=== PATIENT | female | born 1980 | race Caucasian/White ===

== ENCOUNTER → 2016-11-01 | Outpatient (CLI) | payer OTHER ==
--- NOTE | 2016-11-01 13:52 | XR ---
EXAMINATION TYPE: XR Hip Bilateral Complete DATE OF EXAM: 11/01/2016 1:47 PM CLINICAL HISTORY: Bilateral hip pain after popping injury TECHNIQUE: AP and frogleg views of the bilateral hips are obtained. COMPARISON: None. FINDINGS: There is no acute fracture/dislocation evident in either hip. There is mild to moderate ax ial joint space loss in both hips present. No significant spurring is seen bilaterally. The overlying soft tissue appears unremarkable bilaterally. IMPRESSION: There is no acute fracture or dislocation in either hip.
== END | disposition home or self-care (01) ==
LOC: RADXRMAIN 13:30
PROVIDERS: ATTEND Physician Assistant
DX: M24.852 Other specific joint derangements of left hip, not elsewhere classified (principal); M24.851 Other specific joint derangements of right hip, not elsewhere classified; M25.552 Pain in left hip; M25.551 Pain in right hip
CPT/HCPCS: 73521

== ENCOUNTER → 2016-11-24 | Outpatient (CLI) | payer OTHER ==
--- NOTE | 2016-11-24 22:12 | MR ---
EXAMINATION TYPE: MR lumbar spine wo con DATE OF EXAM: 11/24/2016 6:24 PM COMPARISON: NONE HISTORY: Back pain TECHNIQUE: T1 and T2 axial and sagittal images of the lumbar spine are submitted. FINDINGS: There is no abnormal signal seen within the visualized spinal cord or paraspinal soft tissu es. At L1-2 there is no disc herniation or canal stenosis. No foraminal encroachment. At L2-3 there is no disc herniation, canal stenosis, or foraminal encroachment. There is no evidence of degenerative disc disease. Mild circumferential disc bulging. Mild hypertrophic change of the face ts. At L3-4 there is disc desiccation mild loss of disc space. There is an annular tear and broad-based c entral disc bulging with mild effacement of thecal sac. Borderline canal stenosis. Neural foramina pa tent bilaterally. Mild hypertrophic change of the facets. At L4-5 there is disc desiccation and annular tear with central disc broad-based protrusion and mild effacement of thecal sac. Neural foramina patent. At L5-S1 there is no disc herniation, canal stenosis, or foraminal encroachment. There is no evidence of degenerative disc disease. IMPRESSION: 1. Degenerative disc disease and annular tear L3-L4 and L4-L5 with central disc bulging or protrusion and mild effacement of thecal sac but no canal stenosis or foraminal encroachment.
== END | disposition home or self-care (01) ==
LOC: RADMRIMAIN 17:48
PROVIDERS: ATTEND Psychiatry & Neurology Neurology
DX: M51.26 Other intervertebral disc displacement, lumbar region (principal); M51.36 Other intervertebral disc degeneration, lumbar region
CPT/HCPCS: 72148

== ENCOUNTER → 2016-12-12 | Outpatient (CLI) | payer OTHER ==
[2016-12-12 11:33] LABS: Hepatitis B Surface Ag Index 0.07
[2016-12-12 15:37] LABS: Treponemal Ab Non-Reactive (Non-Reactive)
[2016-12-12 17:00] LABS: HSV I IgG Interp POSITIVE (NEGATIVE); HSV II IgG Interp NEGATIVE (NEGATIVE)
[2016-12-13 07:53] LABS: HIV-1/HIV-2 Ab Screen NONREAC (NON REAC)
== END ==
LOC: LABWHC1 10:06
PROVIDERS: ATTEND Obstetrics & Gynecology
DX: Z11.3 Encounter for screening for infections with a predominantly sexual mode of transmission (principal)
CPT/HCPCS: 36415; 86695; 86696; 86780; 87340; 87389

== ENCOUNTER 2018-01-07 10:59 | Day surgery (SDC) | payer BC, OTHER ==
[2018-01-03 10:32] VITALS: BMI 44.4
[~2018-01-07 10:59] MED LIST: DEXAMETHASONE SOD PHOSPHATE 10 MG/ML 1 ML VIAL IV ONE; LACTATED RINGERS 1,000 ML IV SCH; ONDANSETRON 4 MG/2 ML VIAL IVP ONE
[2018-01-07] MEDS ORDERED: LIDOCAINE 1% 20 ML VIAL (10MG/ML) FOR IV START INTRADERMA ONE (11:52)
[2018-01-07 11:53] VITALS: TEMP 97.5
[2018-01-07] MEDS ORDERED: PROPOFOL 10 MG/ML 20 ML VIAL IV ONE (12:34)
[2018-01-07 13:05] VITALS: RESP 18
--- NOTE | 2018-01-07 13:08 | P.PCN ---
Date of Procedure: 01/07/18 Procedure(s) Performed: Procedure: Colonoscopy and biopsy. Preoperative diagnosis: Intermittent rectal bleeding and change in bowel habits. Postoperative diagnosis: 1. Low-grade internal hemorrhoids not bleeding at the time of the exam, otherwise, exam to the terminal ileum within normal limits. 2. Biopsies obtained from the terminal ileum and right colon. Preparation: HalfLytely prep. Sedation: Was provided by anesthesia. Brief clinical history: The patient is a 37-year-old female who was evaluated in the office and scheduled for this evaluation because of intermittent rectal bleeding for the last 6 months. In addition, she reported looser more frequent stools. The patient has been told she had irritable bowel syndrome over the years and her last colonoscopy was 5 or 6 years ago. Procedure: With the patient on her left lateral decubitus position and after informed consent and adequate sedation, the perianal area was inspected and it did not show any fissures or fistulas. The were no masses felt on digital rectal examination. The Olympus CFQ 160L video colonoscope was then inserted in the rectum in the usual fashion and advanced to the cecum. I intubated the ileocecal valve and examined the terminal ileum. Terminal ileum and colon appeared healthy with no edema, erythema, friability, ulceration, exudation or spontaneous bleeding. No polyps or tumors were seen or any obvious diverticular disease. I obtained biopsies from the terminal ileum and right colon then I retroflexed the endoscope in the rectum before the endoscope was withdrawn. Low-grade internal hemorrhoids were noted but there was no bleeding. The patient tolerated the procedure well. Plan: The patient was reassured. She will follow-up with you as planned. Discussed dietary measures and local care for hemorrhoids. We would keep you updated on her progress.
[2018-01-07 13:19] VITALS: BP 118/77; PULSE 66
== END 2018-01-07 14:00 | disposition home or self-care (01) ==
LOC: ORWHC2ENDO 10:59
DX: K64.8 Other hemorrhoids (principal); K58.9 Irritable bowel syndrome, unspecified; M54.9 Dorsalgia, unspecified; Z88.1 Allergy status to other antibiotic agents; Z88.2 Allergy status to sulfonamides; F17.200 Nicotine dependence, unspecified, uncomplicated; Z79.1 Long term (current) use of non-steroidal anti-inflammatories (NSAID); Z79.899 Other long term (current) drug therapy
CPT/HCPCS: 88305; 45380; J1100; J2405; J2704

== ENCOUNTER → 2018-02-15 | Outpatient (CLI) | payer BC, OTHER ==
[2018-02-15 08:55] LABS: Basophils # (A) 0.1 k/uL (0-0.2); Basophils % (A) 1 %; Eosinophils # (A) 0.2 k/uL (0-0.7); Eosinophils % (A) 2 %; HCT 44.4 % (34.0-46.0); HGB 15.2 gm/dL (11.4-16.0); Lymphocytes # (A) 2.5 k/uL (1.0-4.8); Lymphocytes % (A) 29 %; MCHC 34.4 g/dL (31.0-37.0); MCV 87.4 fL (80.0-100.0); Mean Platelet Volume 7.2; Monocytes # (A) 0.5 k/uL (0-1.0); Monocytes % (A) 6 %; Neutrophils # (A) 5.4 k/uL (1.3-7.7); Neutrophils % (A) 61 %; Platelet Count 330 k/uL (150-450); RBC 5.08 m/uL (3.80-5.40); RDW 12.5 % (11.5-15.5); WBC 8.9 k/uL (3.8-10.6)
== END | disposition home or self-care (01) ==
LOC: LABPAT 08:30
PROVIDERS: ATTEND Obstetrics & Gynecology
DX: Z01.812 Encounter for preprocedural laboratory examination (principal)
CPT/HCPCS: 36415; 85025

== ENCOUNTER → 2018-02-19 | Day surgery (SDC) | payer BC, OTHER ==
[2018-02-14 14:54] VITALS: BMI 42.6
[~2018-02-19] MED LIST changes: +ACETIC ACID 15 DROPS/ML DROPS MISCELLANE ONE; +HYDROcodone/APAP 7.5-325MG 1 EACH TAB PO ONE; +KETOROLAC 30 MG/ML 1 ML VIAL ONE; +LACTATED RINGERS 1,000 ML IV ONE; +LIDOCAINE 1% 20 ML VIAL (10MG/ML) FOR IV START INTRADERMA ONE; +LIDOCAINE 1% INJ 10MG/ML (20 ML MDV) ONE; +MEPERIDINE 50 MG/ML SYRINGE IVP ONE; +MIDAZOLAM 2 MG/2 ML VIAL IV PRN; +MIDAZOLAM 2 MG/2 ML VIAL ONE; +ONDANSETRON ODT 4 MG TAB PO ONE; +PROPOFOL 10 MG/ML 20 ML VIAL IV ONE; +Pre Op ABX Message 1 EACH MISC MISCELLANE ONE; +SCOPOLAMINE 1.5MG/72HR PATCH TRANSDERM ONE; +SILVER sulfADIAZINE Cream 400 GM 1 APPLIC APPLIC TOPICAL ONE; +fentaNYL (PF) 50 MCG/ML 2 ML AMP IV PRN; +fentaNYL (PF) 50 MCG/ML 2 ML AMP ONE
[2018-02-19 08:05] VITALS: TEMP 97.5
--- NOTE | 2018-02-19 08:05 | P.HPOB ---
History of Present Illness H&P Date: 02/19/18 Chief Complaint: vulvar condyloma 37 year old presents for laser vaporization of vulvar condyloma. Review of Systems All systems: negative Constitutional: Denies chills, Denies fever Eyes: denies blurred vision, denies pain Ears, nose, mouth and throat: Denies headache, Denies sore throat Cardiovascular: Denies chest pain, Denies shortness of breath Respiratory: Denies cough Gastrointestinal: Denies abdominal pain, Denies diarrhea, Denies nausea, Denies vomiting Genitourinary: Denies dysuria, Denies hematuria Musculoskeletal: Denies myalgias Integumentary: Denies pruritus, Denies rash Neurological: Denies numbness, Denies weakness Psychiatric: Denies anxiety, Denies depression Endocrine: Denies fatigue, Denies weight change Past Medical History Past Medical History: Fibromyalgia, Hearing Disorder / Deafness, Osteoarthritis (OA) Additional Past Medical History / Comment(s): Chronic back pain. Issues with recent rectal bleeding and loose stools but getting better, IBS, chronic ear infections. "Poor hearing, eustachian tubes never formed." History of Any Multi-Drug Resistant Organisms: MRSA Date of last positivie culture/infection: 12/02/15 MDRO Source:: Groin Past Surgical History: Cholecystectomy, Tubal Ligation, Uterine Ablation Additional Past Surgical History / Comment(s): Several myringotomies & tubes, mastoid surgery right ear, laser vaporization of condyloma Past Anesthesia/Blood Transfusion Reactions: Postoperative Nausea & Vomiting ( PONV) Additional Past Anesthesia/Blood Transfusion Reaction / Comment(s): Severe PONV. Past Psychological History: Anxiety, Depression Smoking Status: Current every day smoker Past Alcohol Use History: Rare Additional Past Alcohol Use History / Comment(s): Has been smoking 1PPD for 15 yrs. Past Drug Use History: None Reported - Past Family History Mother Family Medical History: Cancer Medications and Allergies Home Medications Medication Instructions Recorded Confirmed Type Naproxen [Naprosyn] 500 mg PO Q12HR PRN 01/03/18 02/19/18 History HYDROcodone/APAP 7.5-325MG [[place] 1 tab PO TID 02/14/18 02/19/18 History 7.5-325] Allergies Allergy/AdvReac Type Severity Reaction Status Date / Time sulfamethoxazole Allergy Rash/Hives Verified 02/19/18 07:58 [From Bactrim] trimethoprim [From Bactrim] Allergy Rash/Hives Verified 02/19/18 07:58 Exam Osteopathic Statement: *. No significant issues noted on an osteopathic structural exam other than those noted in the History and Physical/Consult. Heart: Regular rate and rhythm Lungs: Clear to auscultation bilaterally Abdomen: Soft, nontender Extremities: Negative Homans sign Assessment and Plan (1) Condyloma acuminata Current Visit: No Status: Acute Code(s): A63.0 - ANOGENITAL (VENEREAL) WARTS SNOMED Code(s): 903420016 Plan: 1. laser vaporization of condyloma
--- NOTE | 2018-02-19 09:38 | P.OP ---
Date of Procedure: 02/19/18 Preoperative Diagnosis: 1. vulvar condyloma Postoperative Diagnosis: 1. vulvar condyloma Procedure(s) Performed: laser vaporization of condyloma Anesthesia: MAC Surgeon: Devora Portillo Estimated Blood Loss (ml): 1 IV fluids (ml): 600 Urine output (ml): 5 Pathology: none sent Condition: stable Disposition: PACU Description of Procedure: Patient is taken the operating room where general anesthesia was obtained without difficulty. She is prepped and draped in normal sterile fashion dorsal lithotomy position, legs placed in candycane stirrups. The CO2 laser was placed on a power of 4 with a 10 second pulse. Several vulvar and perianal condyloma were vaporized. Silvadene was placed over the entire area when we were finished. Patient tolerated procedure well. Sponge and instrument counts are correct 2. She was taken to recovery room in stable condition.
[2018-02-19 10:18] VITALS: RESP 16
[2018-02-19 11:04] VITALS: BP 133/82; PULSE 55
== END | disposition home or self-care (01) ==
LOC: OR 07:30
PROVIDERS: ATTEND Obstetrics & Gynecology
DX: A63.0 Anogenital (venereal) warts (principal); M79.7 Fibromyalgia; H91.90 Unspecified hearing loss, unspecified ear; M19.90 Unspecified osteoarthritis, unspecified site; M54.9 Dorsalgia, unspecified; M54.2 Cervicalgia; G89.29 Other chronic pain; K58.9 Irritable bowel syndrome, unspecified; H66.90 Otitis media, unspecified, unspecified ear; F41.9 Anxiety disorder, unspecified; F32.9 Major depressive disorder, single episode, unspecified; F17.200 Nicotine dependence, unspecified, uncomplicated; Z79.891 Long term (current) use of opiate analgesic; Z88.1 Allergy status to other antibiotic agents; Z88.2 Allergy status to sulfonamides; Z87.19 Personal history of other diseases of the digestive system; Z86.14 Personal history of Methicillin resistant Staphylococcus aureus infection; Z98.51 Tubal ligation status
CPT/HCPCS: 81025; 56501; 46917; J2250; J1100; J2175; J2405; J2001; J3010; J1885; J2704

== ENCOUNTER → 2018-07-23 | Outpatient (CLI) | payer BC, OTHER ==
[2018-07-23 12:48] LABS: Basophils # (A) 0.1 k/uL (0-0.2); Basophils % (A) 1 %; Eosinophils # (A) 0.2 k/uL (0-0.7); Eosinophils % (A) 3 %; HGB 14.1 gm/dL (11.4-16.0); Lymphocytes # (A) 2.1 k/uL (1.0-4.8); Lymphocytes % (A) 30 %; MCH 30.4 pg (25.0-35.0); MCHC 33.5 g/dL (31.0-37.0); MCV 90.5 fL (80.0-100.0); Mean Platelet Volume 6.9; Monocytes # (A) 0.4 k/uL (0-1.0); Monocytes % (A) 5 %; Neutrophils # (A) 4.3 k/uL (1.3-7.7); Neutrophils % (A) 60 %; Platelet Count 299 k/uL (150-450); RBC 4.64 m/uL (3.80-5.40); RDW 12.8 % (11.5-15.5); WBC 7.1 k/uL (3.8-10.6)
--- NOTE | 2018-07-23 13:03 | XR ---
EXAMINATION TYPE: XR chest 2V DATE OF EXAM: 07/23/2018 COMPARISON: Chest x-ray March 31, 2013. HISTORY: Nasal congestion and cough. TECHNIQUE: Frontal and lateral views of the chest are obtained. FINDINGS: There is no focal air space opacity, pleural effusion, or pneumothorax seen. The cardiac silhouette size is within normal limits. The osseous structures are intact. IMPRESSION: No acute cardiopulmonary process. No significant change from prior.
--- NOTE | 2018-07-23 13:04 | XR ---
EXAMINATION TYPE: XR sinus DATE OF EXAM: 07/23/2018 CLINICAL HISTORY: Nasal congestion and cough. TECHNIQUE: Landry, Dupont, bucket-handle, and lateral image of the skull are obtained. COMPARISON: CT brain September 17, 2015. FINDINGS: The paranasal sinuses including the frontal and maxillary sinuses appear well aerated witho ut distinct abnormal opacification or suspicious air-fluid levels. Orbital floors and hampton are inta ct. Facial bones appear intact. Nasal septum remains slightly deviated to left of midline. There is chronic sclerosis of mastoid air cells redemonstrated. IMPRESSION: No convincing radiographic evidence for acute sinusitis.
[2018-07-23 13:29] LABS: Potassium 4.2 mmol/L (3.5-5.1); T4, Free (Free Thyroxine) 1.23 ng/dL (0.78-2.19)
[2018-07-23 13:31] LABS: ALT 39 U/L (9-52); AST 19 U/L (14-36); Albumin 3.9 g/dL (3.5-5.0); Alkaline Phosphatase 60 U/L (38-126); Anion Gap 9 mmol/L; Blood Urea Nitrogen 12 mg/dL (7-17); Calcium 9.4 mg/dL (8.4-10.2); Carbon Dioxide 25 mmol/L (22-30); Chloride 106 mmol/L (98-107); Cholesterol 131 mg/dL (<200); Glucose 84 mg/dL (74-99); HDL Cholesterol 42 mg/dL (40-60); LDL Cholesterol,Calculated 79 mg/dL (0-99); Sodium 140 mmol/L (137-145); Total Bilirubin 0.4 mg/dL (0.2-1.3); Total Protein 7.1 g/dL (6.3-8.2); Triglycerides 48 mg/dL (<150)
[2018-07-23 20:01] LABS: DHEA Sulfate 134.3 ug/dL (26.0-430.0)
[2018-07-23 20:03] LABS: Vitamin D 25 Hydroxy 20.7 ng/mL (30.0-100.0)
== END ==
LOC: LABWHC1 10:52
PROVIDERS: ATTEND Internal Medicine
DX: R05 Cough (principal); R09.81 Nasal congestion; N64.3 Galactorrhea not associated with childbirth; Z13.0 Encounter for screening for diseases of the blood and blood-forming organs and certain disorders involving the immune mechanism; Z13.228 Encounter for screening for other metabolic disorders; Z13.220 Encounter for screening for lipoid disorders
CPT/HCPCS: 36415; 70220; 71046; 80053; 80061; 82306; 82627; 84146; 84439; 84443; 85025

== ENCOUNTER → 2020-10-22 | Outpatient (CLI) | payer BC, OTHER ==
[2020-10-22 08:42] LABS: Basophils # (A) 0.1 k/uL (0-0.2); Basophils % (A) 1 %; Eosinophils # (A) 0.3 k/uL (0-0.7); Eosinophils % (A) 3 %; HCT 47.6 % (34.0-46.0); HGB 15.4 gm/dL (11.4-16.0); Lymphocytes # (A) 2.3 k/uL (1.0-4.8); Lymphocytes % (A) 24 %; MCH 29.4 pg (25.0-35.0); MCHC 32.3 g/dL (31.0-37.0); MCV 91.2 fL (80.0-100.0); Monocytes # (A) 0.5 k/uL (0-1.0); Monocytes % (A) 5 %; Neutrophils # (A) 6.1 k/uL (1.3-7.7); Neutrophils % (A) 65 %; Platelet Count 316 k/uL (150-450); RBC 5.22 m/uL (3.80-5.40); RDW 13.3 % (11.5-15.5); WBC 9.4 k/uL (3.8-10.6)
[2020-10-22 17:03] LABS: African American GFR (CKD) 125.6 (60.0-200.0); Albumin 4.2 g/dL (3.80-4.90); Albumin/Globulin Ratio 1.56 (1.60-3.17); BUN/Creat Ratio 15.71 Ratio (12.00-20.00); Calcium 9.2 mg/dL (8.7-10.3); Globulin 2.7 g/dL (1.6-3.3); Non-African American GFR(CKD) 108.4 (60.0-200.0); Potassium 4.4 mmol/L (3.5-5.5); Total Bilirubin 0.6 mg/dL (0.3-1.2); Total Protein 6.9 g/dL (6.2-8.2)
== END | disposition home or self-care (01) ==
LOC: LABWHC1 07:38
PROVIDERS: ATTEND Nurse Practitioner Family
DX: L02.828 Furuncle of other sites (principal)
CPT/HCPCS: 36415; 80053; 83036; 84134; 85025

== ENCOUNTER → 2022-09-01 | Outpatient (CLI) | payer BC, OTHER ==
[2022-09-01 14:43] LABS: Basophils # (A) 0.04 X 10*3/uL (0.00-0.10); Basophils % (A) 0.7 %; Eosinophils # (A) 0.15 X 10*3/uL (0.04-0.35); Eosinophils % (A) 2.6 %; HCT 44.8 % (37.2-46.3); HGB 14.8 g/dL (12.0-15.0); Immature Grans, Automated 0.3 %; Lymphocytes # (A) 1.29 X 10*3/uL (0.90-5.00); Lymphocytes % (A) 22.1 %; MCH 29.2 pg (27.0-32.0); MCV 88.5 fL (80.0-97.0); Mean Platelet Volume 10.4 fL (9.5-12.2); Monocytes # (A) 0.49 X 10*3/uL (0.20-1.00); Monocytes % (A) 8.4 %; NRBC Per 100 WBC 0 /100 WBCS (0.0-0.0); Neutrophils # (A) 3.84 X 10*3/uL (1.80-7.70); Neutrophils % (A) 65.9 %; Platelet Count 333 X 10*3/uL (140-440); RBC 5.06 X 10*6/uL (4.10-5.20); RDW 13.6 % (11.5-14.5); WBC 5.83 X 10*3/uL (4.50-10.00)
[2022-09-01 18:07] LABS: ALT 8 U/L (8-44); AST 23 U/L (13-35); African American GFR (CKD) 119.9 (60.0-200.0); Albumin/Globulin Ratio 1.14 (1.60-3.17); Alkaline Phosphatase 75 U/L (41-126); BUN/Creat Ratio 11.29 Ratio (12.00-20.00); Blood Urea Nitrogen 8.1 mg/dL (9.0-27.0); Calcium 9.5 mg/dL (8.7-10.3); Carbon Dioxide 15.4 mmol/L (20.0-27.5); Chloride 104 mmol/L (96-109); Chol/HDL Ratio 3.25 Ratio; Globulin 3.5 g/dL (1.6-3.3); Glucose 80 mg/dL (70-110); LDL Cholesterol,Calculated 88.8 mg/dL (0.0-131.0); Non-African American GFR(CKD) 103.5 (60.0-200.0); Potassium 4.2 mmol/L (3.5-5.5); Sodium 137 mmol/L (135-145); Total Protein 7.5 g/dL (6.2-8.2); VLDL Calculation 12.94 mg/dL (5.00-40.00)
[2022-09-01 19:19] LABS: C-Peptide 3.08 ng/mL (0.81-3.85)
== END | disposition home or self-care (01) ==
LOC: LABWHC1 07:16
PROVIDERS: ATTEND Family Medicine
DX: Z00.00 Encounter for general adult medical examination without abnormal findings (principal); I10 Essential (primary) hypertension; Z79.899 Other long term (current) drug therapy
CPT/HCPCS: 36415; 80053; 80061; 83036; 84443; 84681; 85025

== ENCOUNTER → 2023-01-22 | Outpatient (CLI) | payer BC, OTHER ==
--- NOTE | 2023-01-23 09:54 | MM ---
Reason for Exam: Screening (asymptomatic). Baseline mammogram. Patient History: Menarche at age 13. First Full-Term at age 24. Mother had ovarian cancer, age 35. Last menstrual period: 01/08/2023 Risk Values: Rae 5 year model risk: 0.6%. NCI Lifetime model risk: 8.9%. Prior Study Comparison: Patient's first Mammogram. Tissue Density: There are scattered fibroglandular densities. Findings: Analyzed By CAD. There is no suspicious group of microcalcifications or new suspicious mass in either breast. Overall Assessment: Negative, BI-RAD 1 Management: Screening Mammogram of both breasts in 1 year. A clinical breast exam by your physician is recommended on an annual basis and results should be correlated with mammographic findings. Electronically signed and approved by: Devin Barriga M.D. Radiologis
== END | disposition home or self-care (01) ==
LOC: RADMAMWWP 15:41
PROVIDERS: ATTEND Obstetrics & Gynecology
DX: Z12.31 Encounter for screening mammogram for malignant neoplasm of breast (principal)
CPT/HCPCS: 77063; 77067